=== PATIENT | female | born 1995 | race Caucasian/White ===

== ENCOUNTER 2018-09-15 01:49 | Emergency (ER) | payer OTHER ==
[~2018-09-15] VITALS: Ht 167.6 cm; Wt 71.2 kg
[2018-09-15 01:11] VITALS: BP 117/77
== END 2018-09-15 03:51 | disposition home or self-care (01) ==
LOC: ED 01:49
DX: S01.511A Laceration without foreign body of lip, initial encounter (principal); X58.XXXA Exposure to other specified factors, initial encounter; Y93.89 Activity, other specified; Y92.89 Other specified places as the place of occurrence of the external cause; Y99.8 Other external cause status
CPT/HCPCS: J2001

== ENCOUNTER 2018-09-20 14:35 | Emergency (ER) | payer OTHER ==
[~2018-09-20] VITALS: Ht 167.6 cm; Wt 71.8 kg
[2018-09-20 14:44] VITALS: Ht 167.6 cm; Wt 71.8 kg
[2018-09-20 16:09] VITALS: BP 123/74
== END 2018-09-20 16:09 | disposition home or self-care (01) ==
LOC: ED 14:35
DX: S01.511D Laceration without foreign body of lip, subsequent encounter (principal); X58.XXXD Exposure to other specified factors, subsequent encounter